=== PATIENT | female | born 1960 | race Hispanic/Latino ===

== ENCOUNTER 2017-12-11 16:10 | Inpatient (IN) | payer BC ==
[2017-12-11 16:38] VITALS: BMI 24.2
--- NOTE | 2017-12-11 16:47 | C.PDOC ---
History Of Present Illness 57 y/o female presents to ED requesting alcohol detox. Pt is prescreened. Otherwise, denies SI/HI, or any active physical complaints at this time. Time Seen by Provider: 12/11/17 16:23 Chief Complaint (Nursing): Substance Abuse History Per: Patient History/Exam Limitations: no limitations Past Medical History Reviewed: Historical Data, Nursing Documentation, Vital Signs Vital Signs: Last Vital Signs Temp 98.4 F 12/11/17 16:19 Pulse 116 H 12/11/17 16:19 Resp 19 12/11/17 16:19 BP 153/96 H 12/11/17 16:19 Pulse Ox 98 12/11/17 16:19 - Medical History PMH: Depression Denies: Anxiety, Bipolar Disorder, Diabetes, Hepatitis, HIV, HTN, Paranoia, Post Traumatic Stress Disorder, Chronic Kidney Disease, Schizophrenia, Seizures, Sexually Transmitted Disease Surgical History: Appendectomy Denies: Pacemaker - [facility] Procedures ALCOHOL DETOXIFICATION (09/15/14) APPLICATION OF SPLINT (06/10/02) BILAT ENDOS OCC TUBE NEC (07/22/00) COLONOSCOPY (04/02/12) DESTRUCT EXT EAR LES NEC (11/06/00) IMMOBILIZ/WOUND ATTN NEC (10/03/13) LAPAROSCOP LYSIS-PERITONEAL ADHES (07/22/00) OTH LAPAROSCOP LOCAL EXCIS/DESTRUCT OVARY (07/22/00) Family History: States: Unknown Family Hx - Social History Hx Alcohol Use: Yes (prior sobriety of 15 years) Hx Substance Use: No (Denied) - Immunization History Hx Influenza Vaccination: No Hx Pneumococcal Vaccination: No Review Of Systems Except As Marked, All Systems Reviewed And Found Negative. Constitutional: Negative for: Fever, Chills Cardiovascular: Negative for: Chest Pain Respiratory: Negative for: Shortness of Breath Physical Exam - Physical Exam Additional Physical Exam Comments: Constitutional: No acute distress. Head: Normocephalic. Atraumatic. Eyes: PERRL. ENT: Moist mucous membranes. Neck: Supple. Cardiovascular: Regular rate. Radial pulse 2+ bilaterally. Chest: No tenderness. Respiratory: Clear to auscultation bilaterally. GI: Soft. Nontender. Nondistended. Back: No CVA tenderness. Musculoskeletal: No tenderness or swelling of extremities. Skin: No rash. Neurologic: Alert, no focal deficit. ED Course And Treatment - Laboratory Results Result Diagrams: 12/11/17 16:54 12/11/17 16:54 O2 Sat by Pulse Oximetry: 98 Medical Decision Making Medical Decision Making: Plan: Blood work Urinalysis Ativan Disposition - Disposition Disposition: HOSPITALIZED Disposition Time: 18:28 Condition: STABLE Forms: [facility] ([place]) - Clinical Impression Clinical Impression: Alcohol use disorder, severe, dependence - Scribe Statement The provider has reviewed the documentation as recorded by the Scribe KP All medical record entries made by the Scribe were at my direction and personally dictated by me. I have reviewed the chart and agree that the record accurately reflects my personal performance of the history, physical exam, medical decision making, and the department course for this patient. I have also personally directed, reviewed, and agree with the discharge instructions and disposition.
[2017-12-11 16:57] LABS: BASO % 0.7 % (0.0-2.0); EOS # 0.1 K/uL (0.0-0.7); EOS % 1.8 % (0.0-4.0); HEMOGLOBIN 15.1 g/dL (11.0-16.0); LYMPH # 3.2 K/uL (1.0-4.3); LYMPH % 46.9 % (20.0-40.0); MEAN CELL VOLUME 87.2 fL (81.0-99.0); MEAN CORPUSCULAR HEMOGLOBIN 29.6 pg (27.0-31.0); MEAN PLATELET VOLUME 8.6 fL (7.2-11.7); MONO # 0.3 K/uL (0.0-0.8); MONO % 4.2 % (0.0-10.0); NEUT # 3.2 K/uL (1.8-7.0); NEUT % 46.4 % (50.0-75.0); NRBC % 0.1 % (0.0-2.0); RBC 5.1 Mil/uL (3.80-5.20); WHITE BLOOD COUNT 6.9 K/uL (4.8-10.8)
[2017-12-11 17:11] LABS: ALB/GLOB RATIO 1.5 (1.0-2.1); ALBUMIN 4.8 g/dL (3.5-5.0); ALT/SGPT 32 U/L (9-52); AST/SGOT 32 U/L (14-36); BLOOD UREA NITROGEN 13 mg/dL (7-17); CALCIUM 9.3 mg/dl (8.6-10.4); GFR NON-AFRICAN AMERICAN > 60
[2017-12-11 17:48] LABS: SQUAMOUS EPITHIAL 2 /hpf (0-5); URINE BACTERIA RARE (<OCC); URINE BILIRUBIN NEGATIVE (NEGATIVE); URINE BLOOD 1+ (NEGATIVE); URINE CLARITY Clear (Clear); URINE COLOR Yellow (YELLOW); URINE GLUCOSE (UA) NORMAL (Normal); URINE HYALINE CAST >20 /lpf (0-2); URINE LEUKOCYTE ESTERASE TRACE Leu/uL (Negative); URINE PROTEIN NEGATIVE (NEGATIVE); URINE UROBILINOGEN NORMAL mg/dL (0.2-1.0)
[2017-12-11 18:09] LABS: BARBITURATES, UR NEGATIVE (NEGATIVE); OPIATES, UR NEGATIVE (NEGATIVE); PHENCYCLIDINE, UR NEGATIVE (NEGATIVE)
[2017-12-11 18:27] LABS: BENZODIAZEPINES, UR POSITIVE (NEGATIVE)
--- NOTE | 2017-12-11 20:08 | PCM.BM ---
Treatment Plan Problems - Problems identified on initial assessmt Depression Date Initiated: 12/11/17 Time Initiated: 20:05 Assessment reference: NA Status: Active Substance Abuse Date Initiated: 12/11/17 Time Initiated: 20:05 Assessment reference: NA Status: Active Treatment assets and liabiliti Patient Assests: cooperative, educated, insightful, ADL independent, physically healthy, good support system, negotiates basic needs, cognitively intact Patient Liabilities: live alone (lives with children), substance abuse (THC, benzo, bal 187), medical problems (none) - Milieu Protocol Maintain good personal hygiene: daily Encourage regular showers, daily Remind patient to perform daily oral care, daily Assist patient to perform ADL's (Self) Conduct patient checks and document Observation sheet: Q15 minutes (safety) Maintain personal safety: every shift Educate patient to report safety concerns to staff, every shift Monitor environment for contraband/sharps Medication safety: Monitor for expected outcome, potential side effects: every shift, Assess barriers to learning: every shift, Assess readiness for medication education: every shift
[2017-12-12] MEDS ORDERED: Multiple Vitamins Tab PO SCH (10:00)
[2017-12-12 10:42] VITALS: RESP 20
--- NOTE | 2017-12-12 18:09 | PCM.PSYCH ---
Initial Psychiatric Evaluation - Initial Psychiatric Evaluation Type of Admission: Voluntary Legal Status: Capacity Chief Complaint (in patient's own words): I was drinking and was feeling depressed.' History of Present Illness and Precipitating Events: Patient is a 57 year old CF, who came to the ED with depressed mood and alcohol abuse. Pt denies any past history of any inpatient psychiatric hospitalizations, however she reports following up with an outpatient psychiatrist Dr. Yancey and an outpatient therapist Dr. Watkins from [place], [place]. Patient also has a primary physician Dr. Lee from [facility] who she saw three months ago. She reports history of few detoxes and rehabs in the past. Patient reported that she was at a detox center [facility] 20 years ago and that she remained sober for 15 years after that discharge. Her last detox was in 2017. As per pt, she relapsed on alcohol after 2 months of her detox, and started feeling more and more depressed. As a result, she starts missing work and it leads to her binge drinking episodes. Patient reports that she drinks once every 6-8 weeks and she drinks 1 bottle of wine and a 6 pack of beer. Patient reports depressed mood, at times feelings of hopelessness and helplessness, and poor sleep. She reports passive suicidal ideation but denies any homicidal ideation. She denies any manic symptoms. She denies any auditory or visual hallucinations or any psychotic symptoms. Patient reports withdrawal symptoms including abdominal cramps, anxiety, headaches, shakes, and sweating. PMH: None reported Current Medications: Active Medications Generic Name Dose Route Start Last Admin Trade Name Freq PRN Reason Stop Dose Admin Chlordiazepoxide 25 mg 12/11/17 19:29 12/12/17 09:08 Librium PO 25 mg Q4H PRN Administration Alcohol Withdrawal Chlordiazepoxide 25 mg 12/12/17 00:00 12/12/17 17:10 Librium PO 12/15/17 23:59 25 mg Q6 MELO Administration Taper Clonidine HCl 0.1 mg 12/11/17 19:29 Catapres PO Q4H PRN Symptoms of alcohol withdrawl Escitalopram Oxalate 5 mg 12/12/17 10:00 12/12/17 09:08 Lexapro PO 5 mg DAILY MELO Administration Folic Acid 1 mg 12/12/17 10:00 12/12/17 09:08 Folic Acid PO 1 mg DAILY MELO Administration Hydroxyzine HCl 25 mg 12/11/17 19:30 Atarax PO Q4H PRN Anxiety Ibuprofen 600 mg 12/11/17 19:30 Motrin Tab PO Q6H PRN Pain, moderate (4-7) Influenza Virus Vaccine 60 mcg 12/13/17 10:00 Fluzone Quad [id number] IM 12/13/17 10:01 .ONCE ONE Multivitamins 1 tab 12/12/17 10:00 12/12/17 09:09 Hexavitamin PO 1 tab DAILY MELO Administration Pneumococcal Polyvalent Vaccine 0.5 ml 12/14/17 10:00 Pneumovax 23 Vaccine IM 12/14/17 10:01 .ONCE ONE Thiamine HCl 100 mg 12/12/17 10:00 12/12/17 09:08 Vitamin B1 Tab PO 100 mg DAILY MELO Administration Trazodone HCl 50 mg 12/11/17 22:00 12/11/17 21:00 Desyrel PO 50 mg HS MELO Administration Past Psychiatric History - Past Psychiatric History Previous Treatment History: Inpatient Pertinent Medical Hx (Current Medical&Sleep Prob, Allergies): Allergies Allergy/AdvReac Type Severity Reaction Status Date / Time Penicillins AdvReac GI Verified 12/11/17 16:34 symptoms/burning Amphetamine Salt Combination [Adderall] 1 tab PO DAILY 09/24/17 Valium 1 tab PO DAILY 12/11/17 Review of Systems - Review of Systems All systems: reviewed and no additional remarkable complaints except - Psychiatric Psychiatric: Anxiety, Behavioral Changes, Depression, Irritability, Mood Swings Mental Status Examination - Personal Presentation Personal Presentation: Looks stated age - Affect Affect: Depressed - Motor Activity Motor Activity: Calm - Reliability in Providing Information Reliability in Providing Information: Fair - Speech Speech: Organized - Mood Mood: Anxious - Formal Thought Process Formal Thought Process: No Impairment - Obsessions/Compulsions Obsessions: No Compulsions: No - Cognitive Functions Orientation: Person, Place, Situation, Time Sensorium: Alert Attention/Concentration: Attentive Abstract Thinking: [place] Estimate of Intelligence: Below average Judgement: Imparied, as evidence by: Poor judgement, Imparied, as evidence by: Lack of insight into illness - Risk Risk: Withdrawal, Diminished functioning - Strength & Assets Inventory Strength & Assets Inventory: Family support DSM 5 DX - DSM 5 DSM 5 Diagnosis: Major depressive disorder single episode moderate Alcohol use disorder severe Alcohol withdrawal - Recommended/Plan of Treatment Treatment Recommendations and Plan of Treatment: Major depressive disorder single episode moderate Alcohol use disorder severe Alcohol withdrawal CBT Attend groups and activities Supportive therapy and psychoeducation [facility] for abstinence Taper with Librium Lexapro Gabapentin for augmentation if needed Trazodone As needed medications All risks, benefits and alternatives of the meds discussed, and the pt agreed and understood. Encourage MAT Refer to rehab or IOP, and self-help groups Nicotine patch if needed
[2017-12-13 06:44] VITALS: BP 107/78; PULSE 90; TEMP 98.6; O2SAT 97
[2017-12-13] MEDS ORDERED: Influenza Vaccine 60 MCG/0.5 ML SYR (3 yr & up) IM ONE (10:00)
--- NOTE | 2017-12-13 20:44 | PCM.PYCHDC ---
Mental Status Examination - Mental Status Examination Orientation: Person, Place, Situation, Time Memory: Intact Mood: Neutral Affect: Other (Appropriate) Speech: Appropriate Attention: WNL Concentration: WNL Association: WNL Fund of Knowledge: WNL Formal Thought Process: No Impairment Description of patient's judgement and insight: Poor Psychotic Thoughts and Behaviors: None Suicidal Ideation: No Current Homicidal Ideation?: No Discharge Summary - Discharge Note Reason for Hospitalization: Alcohol use disorder severe Cannabis use disorder Major depressive disorder single episode moderate Laboratory Data: Reviewed Consultations:: List each consultation separately and include: 1. Reason for request. 2. Findings. 3. Follow-up Summary of Hospital Course include:: 1. Description of specific treatment plan utilized for patients during their course of treatmen. 2. Summarize the time- course for resolution of acute symptoms and/or regressed behaviors. 3. Describe issues identified and worked on during hospitalization. 4. Describe medication utilized. 5. Describe medical problems identified and treated. 6. Reassessment of suicide risk Summary of Hospital Course: Patient is a 57 year old CF, who came to the ED with depressed mood and alcohol abuse. Pt denies any past history of any inpatient psychiatric hospitalizations, however she reports following up with an outpatient psychiatrist Dr. Yancey and an outpatient therapist Dr. Watkins from [place], [place]. Patient also has a primary physician Dr. Lee from [facility] who she saw three months ago. She reports history of few detoxes and rehabs in the past. Patient reported that she was at a detox center [facility] 20 years ago and that she remained sober for 15 years after that discharge. Her last detox was in 2017. As per pt, she relapsed on alcohol after 2 months of her detox, and started feeling more and more depressed. As a result, she starts missing work and it leads to her binge drinking episodes. Patient reports that she drinks once every 6-8 weeks and she drinks 1 bottle of wine and a 6 pack of beer. Patient reports depressed mood, at times feelings of hopelessness and helplessness, and poor sleep. She reports passive suicidal ideation but denies any homicidal ideation. She denies any manic symptoms. She denies any auditory or visual hallucinations or any psychotic symptoms. Patient reports withdrawal symptoms including abdominal cramps, anxiety, headaches, shakes, and sweating. During her stay in the hospital patient was treated with Librium taper for alcohol withdrawal symptoms. Patient was also started on other when necessary medications. Patient started feeling better. Today patient demanding for discharge as she was feeling little better. Patient scheduled discharge was tomorrow on 12/14/2017. Patient demanded discharge one day earlier. Patient he wanted and weight for the covering psychiatrist. Staff requested the patient to stay until covering psychiatrist who was on the day to the hospital. Patient refused to stay. According to staff patient was stable, had no delusions, no auditory or visual hallucinations, no suicidal ideations or homicidal ideations at the time of evaluation and discharge. - Final Diagnosis (DSM 5) Condition upon Discharge: STABLE Disposition: HOME/ ROUTINE Prescriptions/Medication Reconciliation: Escitalopram [Lexapro] 10 mg PO DAILY #30 tab traZODone [Desyrel] 50 mg PO HS #30 tab - Smoking Cessation Smoking Cessation Medication prescribed: No - Antipsychotic Medications Pt discharged on 2 or more routine antipsychotic medications: No
[2017-12-14] MEDS ORDERED: Influenza Virus Vaccine 45 mcg/0.5 ml Syr (36 months - 7 yrs) IM ONE (10:00)
[2017-12-14] MEDS ORDERED: Pneumococcal 23-Valent Vaccine IM ONE (10:00)
== END 2017-12-13 12:05 | disposition home or self-care (01) | DRG 895 ==
LOC: C.ER 16:10 → C.9E 18:47 → C.5E 19:21
PROVIDERS: ADMIT Psychiatry & Neurology Psychiatry; ATTEND Psychiatry & Neurology Psychiatry
PROC: HZ42ZZZ Group Counseling for Substance Abuse Treatment, Cognitive-Behavioral (ICD-10-PCS; principal; 2017-12-11)
PROC: HZ46ZZZ Group Counseling for Substance Abuse Treatment, Psychoeducation (ICD-10-PCS; 2017-12-11)
PROC: HZ89ZZZ Medication Management for Substance Abuse Treatment, Other Replacement Medication (ICD-10-PCS; 2017-12-11)
PROC: HZ52ZZZ Individual Psychotherapy for Substance Abuse Treatment, Cognitive-Behavioral (ICD-10-PCS; 2017-12-11)
PROC: HZ59ZZZ Individual Psychotherapy for Substance Abuse Treatment, Supportive (ICD-10-PCS; 2017-12-11)
PROC: HZ2ZZZZ Detoxification Services for Substance Abuse Treatment (ICD-10-PCS; 2017-12-11)
DX: F10.239 Alcohol dependence with withdrawal, unspecified (principal); F32.1 Major depressive disorder, single episode, moderate; R45.851 Suicidal ideations; F12.90 Cannabis use, unspecified, uncomplicated; F41.9 Anxiety disorder, unspecified; R10.9 Unspecified abdominal pain; R51 Headache